=== PATIENT | female | born 1965 | race Hispanic/Latino ===

== ENCOUNTER → 2022-05-17 | Outpatient (REF) | payer MEDICAID, MEDICARE ==
[2022-05-17 17:45] LABS: BASO # 0.1 10^3/uL (0.0-0.2); BASO % 0.8 % (0.0-1.0); EOS # 0.4 10^3/uL (0.0-0.5); EOS % 5.2 % (0.0-3.0); HEMOGLOBIN 13.5 g/dl (12.0-15.5); LYMPH # 1.8 10^3/uL (1.5-5.0); MEAN CORPUSCULAR HEMOGLOBIN 29.5 pg (27.0-33.0); MEAN CORPUSCULAR HGB CONC 30.7 g/dl (32.0-36.5); MEAN CORPUSCULAR VOLUME 96.3 fl (80.0-96.0); MONO # 0.6 10^3/uL (0.0-0.8); MONO % 7.7 % (2.0-8.0); NEUTROPHILS # 4.8 10^3/uL (1.5-8.5); NEUTROPHILS % 62.2 % (36.0-66.0); PLATELET COUNT, AUTOMATED 322 10^3/uL (150-450); RED BLOOD COUNT 4.57 10^6/uL (4.00-5.40); WHITE BLOOD COUNT 7.6 10^3/uL (4.0-10.0)
[2022-05-17 18:04] LABS: ALBUMIN 3.8 G/DL (3.2-5.2); ALKALINE PHOSPHATASE 132 U/L (46-116); ALT/SGPT < 9 U/L (7.0-40); AST/SGOT 15 U/L (<34); BILIRUBIN,TOTAL 0.3 MG/DL (0.3-1.2); BLOOD UREA NITROGEN 14 MG/DL (9-23); CALCIUM LEVEL 9.4 MG/DL (8.5-10.1); CARBON DIOXIDE LEVEL 31 MMOL/L (20-31); CHLORIDE LEVEL 105 MMOL/L (98-107); CHOLESTEROL LEVEL 190 MG/DL (<200); CHOLESTEROL RISK RATIO 2.64 (<5); CREATININE FOR GFR 0.61 MG/DL (0.55-1.30); GLOMERULAR FILTRATION RATE > 60.0 (>51); GLUCOSE, FASTING 82 MG/DL (60-100); HDL CHOLESTEROL 71.7 MG/DL (>40); LDL CHOLESTEROL 101.7 MG/DL (<100); NON-HDL-C 118.3 MG/DL; POTASSIUM SERUM 5.1 MMOL/L (3.5-5.1); SODIUM LEVEL 142 MMOL/L (136-145); TRIGLYCERIDES LEVEL 83 MG/DL (<150)
[2022-05-17 18:06] LABS: TOTAL 25(OH) VITAMIN D 32.6 NG/ML (20.0-100.0)
[2022-05-17 18:11] LABS: HEMOGLOBIN A1c 5.6 % (4.0-6.0)
== END ==
LOC: M LAB REF 16:45
PROVIDERS: ATTEND Nurse Practitioner Family
DX: E66.9 Obesity, unspecified (principal); E55.9 Vitamin D deficiency, unspecified; R53.83 Other fatigue

== ENCOUNTER → 2022-05-29 | Outpatient (CLI) | payer MEDICARE, OTHER | LOC: M RAD 12:59 | PROVIDERS: ATTEND Nurse Practitioner Family | DX: M25.562 Pain in left knee (principal) ==

== ENCOUNTER → 2022-06-27 | Outpatient (REF) | payer MEDICARE ==
[2022-06-27 13:44] LABS: ALKALINE PHOSPHATASE 139 U/L (46-116)
[2022-06-27 13:46] LABS: TOTAL 25(OH) VITAMIN D 29.5 NG/ML (20.0-100.0)
[2022-06-27 13:47] LABS: C REACTIVE PROTEIN QUANTITATIV < 0.40 MG/DL (<1.0)
[2022-06-27 13:48] LABS: RHEUMATOID FACTOR QUANT 6.2 IU/ML (<14)
[2022-06-28 13:08] LABS: ANTINUCLEAR ANTIBODIES DIRECT Negative (Negative)
== END ==
LOC: M LAB REF 12:10
PROVIDERS: ATTEND Nurse Practitioner Family
DX: R74.8 Abnormal levels of other serum enzymes (principal); M25.50 Pain in unspecified joint; E55.9 Vitamin D deficiency, unspecified

== ENCOUNTER → 2023-03-20 | Outpatient (REF) | payer OTHER, MEDICAID ==
[2023-03-20 17:23] LABS: ALBUMIN 3.9 G/DL (3.2-5.2); ALKALINE PHOSPHATASE 141 U/L (46-116); ALT/SGPT 29 U/L (7.0-40); AST/SGOT 20 U/L (<34); BILIRUBIN,DIRECT < 0.1 MG/DL (<0.4); BILIRUBIN,TOTAL 0.2 MG/DL (0.3-1.2); TOTAL PROTEIN 7.6 G/DL (5.7-8.2)
[2023-03-20 17:24] LABS: BASO # 0.1 10^3/uL (0.0-0.2); EOS # 0.6 10^3/uL (0.0-0.5); EOS % 7.4 % (0.0-3.0); HEMATOCRIT 41.6 % (36.0-47.0); HEMOGLOBIN 13.1 g/dl (12.0-15.5); LYMPH # 2.1 10^3/uL (1.5-5.0); LYMPH % 26.5 % (24.0-44.0); MEAN CORPUSCULAR HGB CONC 31.5 g/dl (32.0-36.5); MEAN CORPUSCULAR VOLUME 95.2 fl (80.0-96.0); MONO # 0.6 10^3/uL (0.0-0.8); MONO % 7.2 % (2.0-8.0); NEUTROPHILS # 4.5 10^3/uL (1.5-8.5); NEUTROPHILS % 57.8 % (36.0-66.0); PLATELET COUNT, AUTOMATED 378 10^3/uL (150-450); RED BLOOD COUNT 4.37 10^6/uL (4.00-5.40); WHITE BLOOD COUNT 7.8 10^3/uL (4.0-10.0)
[2023-03-20 17:25] LABS: THYROID STIMULATING HORMONE 2.958 uIU/ML (0.55-4.78)
== END ==
LOC: M LAB REF 16:29
PROVIDERS: ATTEND Nurse Practitioner Family
DX: R74.8 Abnormal levels of other serum enzymes (principal); R63.6 Underweight

== ENCOUNTER 2023-12-04 12:20 | Emergency (ER) | payer MEDICAID, MEDICARE, OTHER ==
[~2023-12-04] VITALS: Ht 172.7 cm; Wt 53.1 kg
[2023-12-04] MEDS ORDERED: ACET-683 PO (12:47)
[2023-12-04] MEDS ORDERED: TRAZ-252 (12:47)
[2023-12-04 13:55] LABS: RSV AMPLIFICATION NEGATIVE (NEGATIVE)
[2023-12-04 15:25] VITALS: BP 125/86; TEMP 97.8; O2SAT 98
== END 2023-12-04 15:52 | disposition home or self-care (01) ==
LOC: M ED 12:20
DX: B34.9 Viral infection, unspecified (principal); Z79.1 Long term (current) use of non-steroidal anti-inflammatories (NSAID); Z79.899 Other long term (current) drug therapy; Z96.652 Presence of left artificial knee joint

== ENCOUNTER → 2024-01-29 | Outpatient (REF) | payer OTHER, MEDICAID ==
[~2024-01-29] MED LIST: ACET-683 PO; TRAZ-252
[2024-01-30 10:17] LABS: BASO # 0.1 10^3/uL (0.0-0.2); BASO % 0.7 % (0.0-1.0); EOS # 0.3 10^3/uL (0.0-0.5); EOS % 3.1 % (0.0-3.0); HEMOGLOBIN 13.1 g/dl (12.0-15.5); LYMPH # 1.8 10^3/uL (1.5-5.0); LYMPH % 20.2 % (24.0-44.0); MEAN CORPUSCULAR HEMOGLOBIN 30.7 pg (27.0-33.0); MONO # 0.6 10^3/uL (0.0-0.8); NEUTROPHILS % 68.8 % (36.0-66.0); PLATELET COUNT, AUTOMATED 238 10^3/uL (150-450); RED BLOOD COUNT 4.27 10^6/uL (4.00-5.40); WHITE BLOOD COUNT 8.7 10^3/uL (4.0-10.0)
[2024-01-30 10:26] LABS: BLOOD UREA NITROGEN 11 MG/DL (9-23); CALCIUM LEVEL 9.8 MG/DL (8.5-10.1); CARBON DIOXIDE LEVEL 31 MMOL/L (20-31); CHLORIDE LEVEL 105 MMOL/L (98-107); CHOLESTEROL LEVEL 219 MG/DL (<200); CHOLESTEROL RISK RATIO 2.62 (<5); GLOMERULAR FILTRATION RATE > 60.0 (>51); GLUCOSE, FASTING 89 MG/DL (60-100); HDL CHOLESTEROL 83.3 MG/DL (>40); LDL CHOLESTEROL 114.3 MG/DL (<100); NON-HDL-C 135.7 MG/DL; POTASSIUM SERUM 4.3 MMOL/L (3.5-5.1); SODIUM LEVEL 140 MMOL/L (136-145); TRIGLYCERIDES LEVEL 107 MG/DL (<150)
[2024-01-30 10:29] LABS: THYROID STIMULATING HORMONE 1.268 uIU/ML (0.55-4.78)
== END ==
LOC: M LAB REF 09:35
PROVIDERS: ATTEND Nurse Practitioner Family
DX: R05.3 Chronic cough (principal); R63.6 Underweight

== ENCOUNTER 2024-03-17 14:15 | Outpatient (RCR) | payer MEDICARE ==
[2024-03-19] MEDS ORDERED: VENL1TAB35 PO (11:12)
[2024-03-19] MEDS ORDERED: CLON2TAB14 PO (11:12)
[2024-03-19] MEDS ORDERED: DICL20GE TP (11:12)
[2024-03-19] MEDS ORDERED: OMEP40CA5 PO (11:28)
[2024-03-19] MEDS ORDERED: NEUR400C PO (11:33)
== END 2024-03-19 ==
LOC: M PT 14:15
PROVIDERS: ATTEND Physician Assistant
DX: M25.562 Pain in left knee (principal)

== ENCOUNTER → 2024-03-22 | Outpatient (REF) | payer MEDICARE ==
[~2024-03-22] MED LIST changes: +CLON2TAB14 PO; +DICL20GE TP; +NEUR400C PO; +OMEP40CA5 PO; +VENL1TAB35 PO
[2024-03-22 17:20] LABS: BLOOD UREA NITROGEN 14 MG/DL (9-23); CALCIUM LEVEL 9.4 MG/DL (8.5-10.1); CARBON DIOXIDE LEVEL 31 MMOL/L (20-31); CHLORIDE LEVEL 107 MMOL/L (98-107); CREATININE FOR GFR 0.49 MG/DL (0.55-1.30); GLOMERULAR FILTRATION RATE > 60.0 (>51); GLUCOSE, FASTING 79 MG/DL (60-100); POTASSIUM SERUM 5.2 MMOL/L (3.5-5.1); SODIUM LEVEL 143 MMOL/L (136-145)
== END ==
LOC: M LAB REF 16:30
PROVIDERS: ATTEND Nurse Practitioner Family
DX: Z01.818 Encounter for other preprocedural examination (principal)

== ENCOUNTER 2024-03-24 08:23 | Day surgery (SDC) | payer MEDICARE ==
[~2024-03-24] VITALS: Ht 172.7 cm; Wt 53.4 kg
[2024-03-24] MEDS: OFLOXACIN 0.3 % (OCUFLOX) OPTH SOL 5ML OS ONE (06:00)
[2024-03-24] MEDS: LIDOCAINE 3.5 % 1ML OPHTH TOPICAL GEL OU ONE (06:00)
[~2024-03-24 08:23] MED LIST changes: +MIDAZOLAM INJ 2MG/2ML VIAL As Ordered ONE; +PHENYLEPHRINE 10% OPHTH SOL 5ML OS PRN
[2024-03-24] MEDS: PHENYLEPHRINE 2.5% OPHTH SOL 2ML OS SCH (10:01)
[2024-03-24] MEDS: CYCLOPENTOLATE 1% OPHTH SOLN 2ML BTL OS SCH (10:01)
[2024-03-24] MEDS: TROPICAMIDE 1% OPHTH SOLN 15ML OS SCH (10:02)
[2024-03-24] MEDS: LIDOCAINE 1% SDV 5ML VIAL As Ordered ONE (11:20)
[2024-03-24] MEDS: BSS IRRIG/VANCO(10MG)/TOBRA(5MG)/EPINEPH(1:1000-0.5CC)500ML BAG-ORONLY As Ordered ONE (11:21)
[2024-03-24] MEDS: CEFUROXIME 1MG/0.1ML INTRACAMERAL INJ As Ordered ONE (11:21)
[2024-03-24 11:34] VITALS: BP 121/60; TEMP 97.8; O2SAT 99
== END 2024-03-24 11:55 | disposition home or self-care (01) ==
LOC: M SDC 08:23
PROVIDERS: ATTEND Ophthalmology
DX: H25.12 Age-related nuclear cataract, left eye (principal); F41.9 Anxiety disorder, unspecified; K21.9 Gastro-esophageal reflux disease without esophagitis; G47.00 Insomnia, unspecified; Z79.899 Other long term (current) drug therapy
CPT/HCPCS: 66984; J0697; J2250; V2632

== ENCOUNTER 2024-03-31 10:24 | Day surgery (SDC) | payer MEDICARE ==
[~2024-03-31] VITALS: Ht 154.9 cm; Wt 53.1 kg
[~2024-03-31 10:24] MED LIST changes: +PHENYLEPHRINE 10% OPHTH SOL 5ML OD PRN; -PHENYLEPHRINE 10% OPHTH SOL 5ML OS PRN
[2024-03-31] MEDS: LIDOCAINE 3.5 % 1ML OPHTH TOPICAL GEL OU ONE (12:55)
[2024-03-31] MEDS: PHENYLEPHRINE 2.5% OPHTH SOL 2ML OD SCH (12:55)
[2024-03-31] MEDS: TROPICAMIDE 1% OPHTH SOLN 15ML OD SCH (12:55)
[2024-03-31] MEDS: OFLOXACIN 0.3 % (OCUFLOX) OPTH SOL 5ML OD ONE (12:55)
[2024-03-31] MEDS: CYCLOPENTOLATE 1% OPHTH SOLN 2ML BTL OD SCH (12:55)
[2024-03-31] MEDS ORDERED: fentaNYL 100 MCG/2 ML INJECTION As Ordered ONE (14:15)
[2024-03-31] MEDS: LIDOCAINE 1% SDV 5ML VIAL As Ordered ONE (14:27)
[2024-03-31] MEDS: CEFUROXIME 1MG/0.1ML INTRACAMERAL INJ As Ordered ONE (14:27)
[2024-03-31] MEDS: BSS IRRIG/VANCO(10MG)/TOBRA(5MG)/EPINEPH(1:1000-0.5CC)500ML BAG-ORONLY As Ordered ONE (14:28)
[2024-03-31 14:40] VITALS: BP 122/74; TEMP 98.5; O2SAT 96
[2024-03-31] MEDS ORDERED: ONDANSETRON 4MG 2ML VIAL As Ordered ONE (15:07)
== END 2024-03-31 15:08 | disposition home or self-care (01) ==
LOC: M SDC 10:24
PROVIDERS: ATTEND Ophthalmology
DX: H25.11 Age-related nuclear cataract, right eye (principal); K21.9 Gastro-esophageal reflux disease without esophagitis; F41.9 Anxiety disorder, unspecified; Z79.899 Other long term (current) drug therapy; Z90.710 Acquired absence of both cervix and uterus
CPT/HCPCS: 66984; J2250; J2405; J3010; V2632

== ENCOUNTER → 2024-04-01 | Outpatient (CLI) | payer MEDICARE ==
[~2024-04-01] MED LIST changes: -MIDAZOLAM INJ 2MG/2ML VIAL As Ordered ONE; -PHENYLEPHRINE 10% OPHTH SOL 5ML OD PRN
== END ==
LOC: M SOG 07:54
PROVIDERS: ATTEND Physician Assistant
DX: M25.562 Pain in left knee (principal); Z53.9 Procedure and treatment not carried out, unspecified reason

== ENCOUNTER → 2024-04-22 | Outpatient (CLI) | payer MEDICARE | LOC: M RAD 12:50 | PROVIDERS: ATTEND Nurse Practitioner Family | DX: M25.512 Pain in left shoulder (principal) ==

== ENCOUNTER 2024-04-24 22:24 | Emergency (ER) | payer MEDICARE ==
[2024-04-24 22:25] VITALS: BP 162/91; TEMP 97.3; O2SAT 98
[2024-04-25] MEDS: NORCO 5/325MG TABLET (HOME DOSE PACK) PO ONE (01:28)
== END 2024-04-25 01:41 | disposition home or self-care (01) ==
LOC: M ED 22:24
DX: M25.552 Pain in left hip (principal); M25.562 Pain in left knee; W00.0XXA Fall on same level due to ice and snow, initial encounter; M85.862 Other specified disorders of bone density and structure, left lower leg; M17.12 Unilateral primary osteoarthritis, left knee; Y92.410 Unspecified street and highway as the place of occurrence of the external cause; Y93.89 Activity, other specified; Y99.9 Unspecified external cause status; Z79.899 Other long term (current) drug therapy

== ENCOUNTER → 2024-05-06 | Outpatient (CLI) | payer MEDICARE | LOC: M WHC 13:05 | PROVIDERS: ATTEND Nurse Practitioner Family | DX: Z12.31 Encounter for screening mammogram for malignant neoplasm of breast (principal); R92.313 Mammographic fatty tissue density, bilateral breasts ==

== ENCOUNTER → 2024-05-12 | Outpatient (CLI) | payer MEDICARE | LOC: M SOG 07:56 | PROVIDERS: ATTEND Physician Assistant | DX: M25.561 Pain in right knee (principal) ==

== ENCOUNTER → 2024-06-25 | Outpatient (REF) | payer MEDICARE ==
[2024-06-25 16:01] LABS: PERCENT SATURATION 20.6 % (13.2-45.0)
== END ==
LOC: M LAB REF 15:01
PROVIDERS: ATTEND Nurse Practitioner Family
DX: R55 Syncope and collapse (principal)

== ENCOUNTER → 2024-11-09 | Outpatient (CLI) | payer MEDICARE | LOC: M PLALAB 11:10 | PROVIDERS: ATTEND Ophthalmology | DX: R51.9 Headache, unspecified (principal) ==

== ENCOUNTER → 2024-11-22 | Outpatient (REF) | payer MEDICARE ==
[2024-11-22 18:03] LABS: CALCIUM LEVEL 9.2 MG/DL (8.5-10.1); CARBON DIOXIDE LEVEL 29 MMOL/L (20-31); CHLORIDE LEVEL 102 MMOL/L (98-107); CHOLESTEROL LEVEL 218 MG/DL (<200); CHOLESTEROL RISK RATIO 2.59 (<5); CREATININE FOR GFR 0.52 MG/DL (0.55-1.30); GLOMERULAR FILTRATION RATE > 90.0 (>51); IRON (FE) 64 UG/DL (50-170); LDL CHOLESTEROL 115.9 MG/DL (<100); MAGNESIUM LEVEL 2.3 MG/DL (1.8-2.4); NON-HDL-C 133.9 MG/DL; PERCENT SATURATION 15.8 % (13.2-45.0); POTASSIUM SERUM 5.0 MMOL/L (3.5-5.1); SODIUM LEVEL 142 MMOL/L (136-145); TRIGLYCERIDES LEVEL 90 MG/DL (<150)
[2024-11-22 18:04] LABS: VITAMIN B12 LEVEL 575 PG/ML (211-911)
[2024-11-22 18:41] LABS: ESTIMATED AVERAGE GLUCOSE 123.0 MG/DL (60-110)
== END ==
LOC: M LAB REF 16:26
PROVIDERS: ATTEND Nurse Practitioner Family
DX: R55 Syncope and collapse (principal); Z68.1 Body mass index [BMI] 19.9 or less, adult; Z13.6 Encounter for screening for cardiovascular disorders; R63.6 Underweight; Z79.899 Other long term (current) drug therapy

== ENCOUNTER → 2024-11-25 | Outpatient (CLI) | payer MEDICARE ==
[2024-11-25 15:51] LABS: BASO # 0.1 10^3/uL (0.0-0.2); BASO % 0.9 % (0.0-1.0); EOS # 0.3 10^3/uL (0.0-0.5); EOS % 3.5 % (0.0-3.0); LYMPH # 1.9 10^3/uL (1.5-5.0); LYMPH % 23.6 % (24.0-44.0); MONO # 0.6 10^3/uL (0.0-0.8); MONO % 7.4 % (2.0-8.0); NEUTROPHILS # 5.3 10^3/uL (1.5-8.5); NEUTROPHILS % 64.4 % (36.0-66.0); PLATELET COUNT, AUTOMATED 520 10^3/uL (150-450)
[2024-11-25 16:24] LABS: C REACTIVE PROTEIN QUANTITATIV < 0.50 MG/DL (<1.0)
[2024-11-25 16:25] LABS: ALT/SGPT 25 U/L (7.0-40); AST/SGOT 23 U/L (<34); CALCIUM LEVEL 9.4 MG/DL (8.5-10.1); CARBON DIOXIDE LEVEL 29 MMOL/L (20-31); CHLORIDE LEVEL 105 MMOL/L (98-107); CREATININE FOR GFR 0.51 MG/DL (0.55-1.30); ERYTHROCYTE SEDIMENTATION RATE 45 mm/hr (0-30); GLOMERULAR FILTRATION RATE > 90.0 (>51); POTASSIUM SERUM 4.9 MMOL/L (3.5-5.1); SODIUM LEVEL 144 MMOL/L (136-145)
[2024-11-25 17:09] LABS: RHEUMATOID FACTOR QUANT < 3.5 IU/ML (<14)
[2024-11-29 15:22] LABS: ANGIOTENSIN 1 CONVERTING ENZYM 45 U/L (9-67)
[2024-12-02 11:07] LABS: HLA-B27 Negative (Negative)
== END ==
LOC: M LAB 13:30
PROVIDERS: ATTEND Ophthalmology
DX: R51.9 Headache, unspecified (principal); Z13.0 Encounter for screening for diseases of the blood and blood-forming organs and certain disorders involving the immune mechanism; Z79.899 Other long term (current) drug therapy; Z11.3 Encounter for screening for infections with a predominantly sexual mode of transmission; Z72.89 Other problems related to lifestyle

== ENCOUNTER → 2024-11-25 | Outpatient (CLI) | payer MEDICARE | LOC: M EKG 13:26 | PROVIDERS: ATTEND Nurse Practitioner Family | DX: R55 Syncope and collapse (principal) ==